=== PATIENT | female | born 1940 | race Caucasian/White ===

== ENCOUNTER 2018-10-08 11:07 | Inpatient (IN) ==
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
[2018-10-08 11:52] LABS: Hematocrit 33.2 % (37.0-47.0); Hemoglobin 11.2 gm/dL (12.5-16.0); Mean Cell Volume 84.7 fl (78-100); Mean Corpuscular Hemoglobin 28.6 pg (27-31); Mean Corpuscular Hgb Conc 33.7 g/dl (32-36); Mean Platelet Volume 8.8 fl (8-12.5); Neutrophil # 11.8 K/mm3 (1.3-6.0); Neutrophil % 88.6 % (42-75.0); Platelet Count 332 K/mm3 (150-450); Red Blood Count 3.92 M/mm3 (4.2-5.4); Red Cell Distribution Width 13.3 % (11.5-14.0); White Blood Count 13.3 K/mm3 (4.0-10.5)
[2018-10-08 11:59] LABS: INR 1.01 INR (0.92-1.08); Partial Thrombolplastin Time 22.6 Seconds (24-32)
[2018-10-08 12:08] LABS: Albumin * 3.1 gm/dl (3.4-5.0); Bilirubin, Total 0.2 mg/dL (0.0-1.1); Ca. Corrected For Albumin 10.3 mg/dL (8.4-10.2); Calcium * 9.9 mg/dL (7.9-10.9); Carbon Dioxide 27.2 mmol/L (24-32.6); Potassium 3.2 mmol/L (3.4-4.6); Total Protein 6.9 gm/dL (6.2-8.2)
[2018-10-08] MEDS ORDERED: POTASSIUM CHLORIDE 20 MEQ TABLET.SA PO ONE (12:31)
[2018-10-08] MEDS ORDERED: MORPHINE SULFATE 10 MG/ML SYRG IV ONE (12:56)
[2018-10-08] MEDS ORDERED: PANTOPRAZOLE SODIUM 40 MG/100 ML PIGGYBACK IV ONE ×2 (13:17→13:18)
--- NOTE | 2018-10-08 16:13 | CONS ---
HPI - General Date of Service: 10/08/18 Narrative: Mrs. Armando is a 78-year-old female who lives at home who fell when she was getting off the toilet and injured her left ankle. She was seen in emergency department and found to have a left bimalleolar ankle fracture. She is also noted to have started stools and was concerned for a GI bleed per reports from the emergency department physician. She was discussed myself I said that this could be treated outpatient but as she was admitted for other issues she is being seen at this time. She is resting in bed and states that she has minimal pain at this time. Source: patient - History of Present Illness Timing/Duration: 4-6 hours Severity: moderate Modifying Factors - (Worsens): Reports: movement Modifying Factors - (Improves): Reports: immobilization Associated Symptoms: denies symptoms Allergies/Adverse Reactions: Allergies Sulfa (Sulfonamide Antibiotics) Allergy (Mild, Verified 02/18/18 09:15) Hives Home Medications: Home Medications Medication Instructions Recorded Last Taken hydrochlorothiazide 25 mg tablet 25 mg PO DAILY 12/10/17 Unknown hydroxyzine pamoate 25 mg capsule 25 mg PO Q8H PRN 12/10/17 Unknown paroxetine 10 mg tablet 10 mg PO HS 12/10/17 Unknown Ibuprofen 800 mg PO TID PRN 10/08/18 Unknown Review of Systems - Review of Systems Narrative: negative except above Physical Examination - Exam Narrative: Left ankle in splint: Palpable dorsalis pedis pulse, brisk cap refill, able to flex and extend her toes, no bleeding, generalized ankle swelling Vital Signs: Vital Signs - Last Taken Temp 36.9 C 10/08/18 14:58 Pulse 93 10/08/18 14:58 Resp 20 10/08/18 14:58 BP 133/56 10/08/18 14:58 Pulse Ox 94 10/08/18 14:58 O2 Oxygen Delivery Method Room Air Constitutional: Present: Alert, Oriented x3 - Results and Findings: Narrative: Three-view left ankle in Aircast splint: Bimalleolar ankle fracture with transverse Peters B fibula with lateral cortical butterfly fragment, relatively well aligned ankle and fragments, no appreciable other acute osseous pathology Lab/Microbiology results last 24 hrs: Abnormal/Pending Laboratory Last 24 HRS 10/08/18 10/08/18 10/08/18 12:40 11:40 11:40 WBC RBC Hgb Hct Immature Gran % (Auto) Immature Gran # (Auto) Neutrophils % Lymphocytes % Neutrophils # Lymphocytes # PTT ([place]) 22.6 L Potassium 3.2 L Chloride 95 L BUN 58 H BUN/Creatinine Ratio 69.0 H Random Glucose 168 H Calcium Adj for Albumin 10.3 H ALT 17 L Albumin 3.1 L Stool Occult Blood Positive H 10/08/18 11:40 WBC 13.3 H RBC 3.92 L Hgb 11.2 L Hct 33.2 L Immature Gran % (Auto) 0.90 H Immature Gran # (Auto) 0.12 H Neutrophils % 88.6 H Lymphocytes % 6.0 L Neutrophils # 11.8 H Lymphocytes # 0.80 L PTT ([place]) Potassium Chloride BUN BUN/Creatinine Ratio Random Glucose Calcium Adj for Albumin ALT Albumin Stool Occult Blood - Assessments/Findings (1) Bimalleolar fracture of left ankle Diagnosis(s): She will be nonweightbearing to this ankle. Physical therapy will be ordered to assist with mobility. From orthopedic standpoint she does not need to be in the hospital. Ice, elevation, and immobilization to allow for swelling to decrease. This will likely need surgical fixation. She will need to follow up in clinic after discharge to evaluate her swelling and to arrange her surgical intervention as an outpatient. The plan to see her back 2-3 days after discharge. Problem: Acute Qualifiers: Encounter type: initial encounter Fracture type: closed Qualified Code(s): S82.842A - Displaced bimalleolar fracture of left lower leg, initial encounter for closed fracture
[2018-10-08] MEDS ORDERED: hydrOXYzine PAMOATE 25 MG CAPSULE PO PRN (19:10)
[2018-10-08] MEDS ORDERED: POTASSIUM CHLORIDE 40 MEQ/15 ML LIQUID PO ONE (19:12)
[2018-10-08] MEDS: traMADol HCL 50 MG TABLET PO PRN (19:31)
[2018-10-08] MEDS: ACETAMINOPHEN 500 MG TABLET PO PRN (19:31)
--- NOTE | 2018-10-08 19:40 | HP ---
Chief Complaint - Chief Complaint Date of Service: 10/08/18 Time of Service: 19:14 Chief Complaint: Ankle fracture, upper GI bleed History of Present Illness: 78-year-old female presented to the ER after ground-level fall this morning. She was found to have a bimalleolar left ankle fracture. Ortho was consulted who agreed to follow-up with patient in the outpatient setting. She was made nonweightbearing PT was ordered for her. Patient denies dizziness or balance issues with fall, states she is tripped. While in the ER she started talking about black stools have been ongoing for the last 3 days. She denies abdominal pain, nausea/vomiting, history of GERD, or history of GI bleed. Hemoglobin was 11.2, her baseline is unknown at this time. She denies having any recurrent black tarry stools. She is given a GI cocktail and admitted to the floor for GI bleed work-up. She has never had a colonoscopy or EGD. Currently her only concern is her ankle pain. Otherwise she states she feels fine, she is a poor historian though and has a slightly blunted affect. Medical History (Updated 10/08/18 @ 16:13 by Dain Hutchison MD) Fracture of left fibula, shaft Onset Date: ~2017 Osteoarthritis of both knees Onset Date: Unknown Depression Onset Date: Unknown Hypertension Onset Date: Unknown Lumbar radiculopathy Onset Date: Unknown Urticaria Onset Date: Unknown Surgical History: Surgical History (Updated 10/08/18 @ 16:13 by Dain Hutchison MD) History of lumbar surgery Onset Date: 2014 L4-L5 Family History: Family History (Updated 12/10/17 @ 10:07 by Yael Mendoza RN) Mother Hypertension Father Cancer multiple myeloma Social History: Patient Lives/Resources Home Utilized Preferred Language Urdu Do you have any uatsdin or No cultural preference? Smoking Status Never smoker Have you smoked in the past 12 No months (Last Updated 02/18/18 @ 10:20 by Rashawn Napier MD) No Social History Section defined Review Of Systems (GEN) - Review of Systems Generalized/Overall Review: Absent: Weakness, Chills, Fever, Malaise EENTM: Present: No Symptoms Reported Respiratory: Present: No Symptoms Reported Cardiac: Present: No Symptoms Reported Abdominal: Present: Melena. Absent: Nausea, Vomiting, Hematemesis, Abdominal Pain, Bright blood from rectum Genitourinary: Present: No Symptoms Reported Musculoskeletal: Present: Joint Pain - Left ankle pain Neurological: Present: No Symptoms Reported Skin: Present: No Symptoms Reported Endocrine: Present: No Symptoms Reported Immunizations: IMMUNIZATION HX History of Influenza Vaccine More Information Required Hx Pneumococcal Vaccination More Information Required Allergies/Adverse Reactions: Allergies Allergy/AdvReac Type Severity Reaction Status Date / Time Sulfa (Sulfonamide Allergy Mild Hives Verified 02/18/18 09:15 Antibiotics) Home Medications: HOME MEDICATIONS hydrochlorothiazide 25 mg tablet 25 mg PO DAILY 12/10/17 [Last Taken Unknown] hydroxyzine pamoate 25 mg capsule 25 mg PO Q8H PRN 12/10/17 [Last Taken Unknown] paroxetine 10 mg tablet 10 mg PO HS 12/10/17 [Last Taken Unknown] Ibuprofen 800 mg PO TID PRN 10/08/18 [Last Taken Unknown] Exam - Exam Vital Signs: Vital Signs - Last Taken Temp 36.6 C 10/08/18 18:29 Pulse 97 10/08/18 18:29 Resp 18 10/08/18 18:29 BP 130/50 10/08/18 18:29 Pulse Ox 95 10/08/18 18:29 Constitutional: Present: Alert, Oriented x3, Elderly. Absent: Cooperative ENT Exam: Present: hearing grossly normal. Absent: muffled/hoarse voice Eye Exam: bilateral eye: normal inspection Neck: Present: non-tender, supple Respiratory: Present: lungs clear, normal breath sounds. Absent: no respiratory distress Cardiovascular/Chest: Present: normal peripheral pulses, regular rate, rhythm. Absent: systolic murmur Abdomen: Present: Normal bowel sounds, soft, nontender, nondistended Extremity: Present: other - Left ankle in a brace, undisturbed Appearance: Present: appropriate appearance, denies illness Eye contact: Present: good eye contact, normal speech. Absent: cooperative Thoughts: Present: normal thought pattern. Absent: normal mood /affect - Guard ed, slightly blunted affect Diagnostic Studies: Abnormal Lab Results 10/08/18 10/08/18 10/08/18 Range/Units 11:40 11:40 11:40 WBC 13.3 H (4.0-10.5) K/mm3 RBC 3.92 L (4.2-5.4) M/mm3 Hgb 11.2 L (12.5-16.0) gm/dL Hct 33.2 L (37.0-47.0) % Immature Gran % (Auto) 0.90 H (0.001-0.429) % Immature Gran # (Auto) 0.12 H (0.000-0.0310) K/mm3 Neutrophils % 88.6 H (42-75.0) % Lymphocytes % 6.0 L (20-51) % Neutrophils # 11.8 H (1.3-6.0) K/mm3 Lymphocytes # 0.80 L (1.5-3.5) k/mm3 PTT ([place]) 22.6 L (24-32) Seconds Potassium 3.2 L (3.4-4.6) mmol/L Chloride 95 L (97-106) mmol/L BUN 58 H (3-23) mg/dL BUN/Creatinine Ratio 69.0 H (9.0-21.6) Random Glucose 168 H (70-110) mg/dL Calcium Adj for Albumin 10.3 H (8.4-10.2) mg/dL ALT 17 L (19-67) U/L Albumin 3.1 L (3.4-5.0) gm/dl Stool Occult Blood 10/08/18 Range/Units 12:40 WBC (4.0-10.5) K/mm3 RBC (4.2-5.4) M/mm3 Hgb (12.5-16.0) gm/dL Hct (37.0-47.0) % Immature Gran % (Auto) (0.001-0.429) % Immature Gran # (Auto) (0.000-0.0310) K/mm3 Neutrophils % (42-75.0) % Lymphocytes % (20-51) % Neutrophils # (1.3-6.0) K/mm3 Lymphocytes # (1.5-3.5) k/mm3 PTT ([place]) (24-32) Seconds Potassium (3.4-4.6) mmol/L Chloride (97-106) mmol/L BUN (3-23) mg/dL BUN/Creatinine Ratio (9.0-21.6) Random Glucose (70-110) mg/dL Calcium Adj for Albumin (8.4-10.2) mg/dL ALT (19-67) U/L Albumin (3.4-5.0) gm/dl Stool Occult Blood Positive H Laboratory Results WBC 13.3 K/mm3 (4.0-10.5) H 10/08/18 11:40 RBC 3.92 M/mm3 (4.2-5.4) L 10/08/18 11:40 Hgb 11.2 gm/dL (12.5-16.0) L 10/08/18 11:40 Hct 33.2 % (37.0-47.0) L 10/08/18 11:40 MCV 84.7 fl (78-100) 10/08/18 11:40 MCH 28.6 pg (27-31) 10/08/18 11:40 MCHC 33.7 g/dl (32-36) 10/08/18 11:40 RDW 13.3 % (11.5-14.0) 10/08/18 11:40 Plt Count 332 K/mm3 (150-450) 10/08/18 11:40 MPV 8.8 fl (8-12.5) 10/08/18 11:40 Immature Gran % (Auto) 0.90 % (0.001-0.429) H 10/08/18 11:40 Immature Gran # (Auto) 0.12 K/mm3 (0.000-0.0310) H 10/08/18 11:40 88.6 % (42-75.0) H 10/08/18 11:40 6.0 % (20-51) L 10/08/18 11:40 4.4 % (0.0-9) 10/08/18 11:40 0.0 % (0.0-3.0) 10/08/18 11:40 0.1 % (0.0-1.0) 10/08/18 11:40 Nucleated RBC % 0.0 k/mm3 (0-1) 10/08/18 11:40 11.8 K/mm3 (1.3-6.0) H 10/08/18 11:40 0.80 k/mm3 (1.5-3.5) L 10/08/18 11:40 0.6 k/mm3 (0.0-1.0) 10/08/18 11:40 0.0 k/mm3 (0.0-0.7) 10/08/18 11:40 Absolute Basophils 0.0 k/mm3 (0.0-0.1) 10/08/18 11:40 PT 10.0 Seconds (9.1-10.7) 10/08/18 11:40 INR (Anticoag Therapy) 1.01 INR (0.92-1.08) 10/08/18 11:40 PTT ([place]) 22.6 Seconds (24-32) L 10/08/18 11:40 Sodium 132 mmol/L (132-142) 10/08/18 11:40 133 mmol/L (130-142) 10/08/18 11:40 Potassium 3.2 mmol/L (3.4-4.6) L 10/08/18 11:40 Chloride 95 mmol/L (97-106) L 10/08/18 11:40 Carbon Dioxide 27.2 mmol/L (24-32.6) 10/08/18 11:40 13.0 mmol/L (6.8-13.8) 10/08/18 11:40 BUN 58 mg/dL (3-23) H 10/08/18 11:40 0.84 mg/dL (0.4-1.4) 10/08/18 11:40 Est GFR (Non-Af Amer) 70 mL/min (60-130) 10/08/18 11:40 69.0 (9.0-21.6) H 10/08/18 11:40 168 mg/dL (70-110) H 10/08/18 11:40 Calcium 9.9 mg/dL (7.9-10.9) 10/08/18 11:40 Calcium Adj for Albumin 10.3 mg/dL (8.4-10.2) H 10/08/18 11:40 0.2 mg/dL (0.0-1.1) 10/08/18 11:40 AST 14 U/L (0-48) 10/08/18 11:40 ALT 17 U/L (19-67) L 10/08/18 11:40 76 U/L (50-170) 10/08/18 11:40 6.9 gm/dL (6.2-8.2) 10/08/18 11:40 3.1 gm/dl (3.4-5.0) L 10/08/18 11:40 Positive H 10/08/18 12:40 Blood Type O Positive 10/08/18 11:40 Antibody Screen Negative 10/08/18 11:40 Assessment/Plan - Narrative Narrative: 78-year-old female with left bimalleolar fracture. Orthopedics consulted and plan to follow patient in outpatient setting. Patient is currently nonweightbearing. PT ordered to help with mobilization and transfer weight. Patient will follow-up with Ortho in outpatient setting once discharged. Will provide some tramadol and Tylenol as needed for pain Melena and anemiano recent stools since being admitted to the hospital. Will repeat hemoglobin in the morning. If hemoglobin remains stable then this can also be worked up in outpatient setting, if hemoglobin continues to drop, will consult general surgery for EGD. Patient started on Protonix. Currently patient is asymptomatic, no abdominal pain. Next Hypertension well-controlled, continue current treatment plan. Hypokalemiawe will order replacement therapy for this. We will start patient on regular diet as patient will likely need to go back for EGD inpatient. No DVT prophylaxis as patient currently has GI bleed. Nurse will call with any questions or concerns. - Assessment/Plan (1) Upper GI bleed Problem: Suspected (2) Bimalleolar fracture of left ankle Problem: Acute Qualifiers: Encounter type: initial encounter Fracture type: closed Qualified Code(s): S82.842A - Displaced bimalleolar fracture of left lower leg, initial encounter for closed fracture (3) Melena Problem: Acute (4) Hypertension Problem: Chronic (5) Hypokalemia Problem: Acute (6) Anemia Problem: Acute
[2018-10-08 19:57] LABS: Urine Bilirubin Negative (NEGATIVE); Urine Blood 250 /ul (NEGATIVE); Urine Ketone Negative (NEGATIVE); Urine Nitrite Negative (NEGATIVE); Urine Protein Negative (NEGATIVE); Urine Specific Gravity 1.015 SP.GR. (1.005-1.010); Urine Urobilinogen Normal (NORMAL)
[2018-10-08 20:00] LABS: Urine Appearance Slightly Cloudy (CLEAR); Urine Bacteria 3+; Urine Color Yellow; Urine Mucus Moderate - 2+; Urine WBC TRACE /hpf (0-5)
[2018-10-08] MEDS ORDERED: PARoxetine HCL 20 MG TABLET PO ONE (20:48)
[2018-10-08] MEDS: PARoxetine HCL 10 MG TABLET PO SCH (20:57)
[2018-10-08] MEDS: PANTOPRAZOLE SODIUM 40 MG TABLET.EC PO SCH (20:57)
[2018-10-09] MEDS: traMADol HCL 50 MG TABLET PO PRN ×2 (04:23→15:18)
[2018-10-09] MEDS: ACETAMINOPHEN 500 MG TABLET PO PRN ×2 (04:23→20:08)
[2018-10-09 05:50] LABS: Hematocrit 29.8 % (37.0-47.0); Hemoglobin 9.9 gm/dL (12.5-16.0)
[2018-10-09] MEDS: PANTOPRAZOLE SODIUM 40 MG TABLET.EC PO SCH ×2 (06:51→20:08)
[2018-10-09] MEDS ORDERED: HYDROCHLOROTHIAZIDE 25 MG TABLET PO SCH (09:00)
[2018-10-09] MEDS ORDERED: NORMAL SALINE 1,000 ML IV PRN (09:32)
--- NOTE | 2018-10-09 11:48 | PN ---
Subjective - Date and Time Seen Date: 10/09/18 Time: 11:48 Subjective Narrative: Patient resting comfortably in her bed, vital signs been stable with no acute events overnight. Pain well controlled. Hemoglobin dropped again, patient endorses some lightheaded and dizziness but otherwise denies abdominal pain, nausea/vomiting, hematemesis. Patient did have one black stool overnight. Objective - Review of Systems Generalized/Overall Review: Denies: Weakness, Chills, Fever EENTM: Reports: No Symptoms Reported Respiratory: Reports: No Symptoms Reported Cardiac: Reports: No Symptoms Reported Abdominal: Reports: Melena. Denies: Nausea, Vomiting, Hematemesis, Abdominal Pain Genitourinary Symptoms: Reports: No Symptoms Reported Musculoskeletal Complaints: Reports: Joint Pain Neurological: Reports: No Symptoms Reported Skin: Reports: No Symptoms Reported Endocrine: Reports: No Symptoms Reported - Vitals Vitals: Last Vital Signs Temp 36.8 C 10/09/18 11:25 Pulse 79 10/09/18 11:25 Resp 16 10/09/18 11:25 BP 115/54 10/09/18 11:25 Pulse Ox 97 10/09/18 11:25 - Abnormal Lab Findings Abnormal Lab Findings: Abnormal Lab Results 10/08/18 10/08/18 10/08/18 Range/Units 11:40 11:40 11:40 WBC 13.3 H (4.0-10.5) K/mm3 RBC 3.92 L (4.2-5.4) M/mm3 Hgb 11.2 L (12.5-16.0) gm/dL Hct 33.2 L (37.0-47.0) % Immature Gran % (Auto) 0.90 H (0.001-0.429) % Immature Gran # (Auto) 0.12 H (0.000-0.0310) K/mm3 Neutrophils % 88.6 H (42-75.0) % Lymphocytes % 6.0 L (20-51) % Neutrophils # 11.8 H (1.3-6.0) K/mm3 Lymphocytes # 0.80 L (1.5-3.5) k/mm3 PTT (Jael) 22.6 L (24-32) Seconds Potassium 3.2 L (3.4-4.6) mmol/L Chloride 95 L (97-106) mmol/L BUN 58 H (3-23) mg/dL BUN/Creatinine Ratio 69.0 H (9.0-21.6) Random Glucose 168 H (70-110) mg/dL Calcium Adj for Albumin 10.3 H (8.4-10.2) mg/dL ALT 17 L (19-67) U/L Albumin 3.1 L (3.4-5.0) gm/dl Urine Blood (NEGATIVE) /ul Ur Leukocyte Esterase (NEGATIVE) /ul Urine RBC (0-5) /hpf Urine WBC (0-5) /hpf Ur Epithelial Cells (0-5) /hpf Urine Bacteria (NONE) Urine Mucus (NONE) Stool Occult Blood 10/08/18 10/08/18 10/09/18 Range/Units 12:40 19:51 05:05 WBC (4.0-10.5) K/mm3 RBC (4.2-5.4) M/mm3 Hgb 9.9 L (12.5-16.0) gm/dL Hct 29.8 L (37.0-47.0) % Immature Gran % (Auto) (0.001-0.429) % Immature Gran # (Auto) (0.000-0.0310) K/mm3 Neutrophils % (42-75.0) % Lymphocytes % (20-51) % Neutrophils # (1.3-6.0) K/mm3 Lymphocytes # (1.5-3.5) k/mm3 PTT (Jael) (24-32) Seconds Potassium (3.4-4.6) mmol/L Chloride (97-106) mmol/L BUN (3-23) mg/dL BUN/Creatinine Ratio (9.0-21.6) Random Glucose (70-110) mg/dL Calcium Adj for Albumin (8.4-10.2) mg/dL ALT (19-67) U/L Albumin (3.4-5.0) gm/dl Urine Blood 250 H (NEGATIVE) /ul Ur Leukocyte Esterase 75 H (NEGATIVE) /ul Urine RBC 5-10 H (0-5) /hpf Urine WBC Trace H (0-5) /hpf Ur Epithelial Cells 5-10 H (0-5) /hpf Urine Bacteria 3+ H (NONE) Urine Mucus Moderate - 2+ H (NONE) Stool Occult Blood Positive H - Exam Constitutional: Present: Alert, Oriented x3 ENT Exam: Present: hearing grossly normal. Absent: nasal congestion, nasal drainage Neck: Present: non-tender, supple Respiratory: Present: lungs clear, normal breath sounds, no respiratory distress Cardiovascular/Chest: Present: normal peripheral pulses, regular rate, rhythm Abdomen: Present: Normal bowel sounds, soft, nontender, nondistended /Rectal: Present: Exam deferred Extremity: Present: normal capillary refill - Left lower extremity, leg pain Skin Exam: Present: normal color, warm/dry Appearance: Present: appropriate appearance, appropriate insight Eye contact: Present: cooperative, good eye contact Thoughts: Present: normal thought pattern, normal mood /affect Assessment/Plan Plan Narrative: #1 acute blood loss anemia likely secondary to upper GI bleedhemoglobin dropped from 11.2 down to 9.9. Patient is symptomatic with movement including dizziness blood pressures dropped down into the 80s systolically x1 otherwise been normal. General surgery consulted today who plan to take her back for EGD tomorrow. Patient will n.p.o. at midnight. Repeat hemogram the morning Left lower extremity bimalleolar fracturepatient to follow with Ortho outpatient once medically stable. Tramadol as needed for pain. Hypokalemiapotassium replaced today, repeat BMP in the morning Hypertensionwell-controlled aside from the 1 hypotensive episode this morning but otherwise have ranged from the 110s systolically over 40s and 50s diastolically. Nurse will call with any questions or concerns - Problems/Diagnosis (1) Upper GI bleed Problem: Suspected (2) Bimalleolar fracture of left ankle Problem: Acute Qualifiers: Encounter type: initial encounter Fracture type: closed Qualified Code(s): S82.842A - Displaced bimalleolar fracture of left lower leg, initial encounter for closed fracture (3) Melena Problem: Acute (4) Hypertension Problem: Chronic (5) Hypokalemia Problem: Acute (6) Anemia Problem: Acute
--- NOTE | 2018-10-09 12:47 | CONS ---
[facility] - General Date of Service: 10/09/18 Narrative: Upper GI bleed Source: patient Exam Limitations: no limitations - History of Present Illness Initial Comments: Alondra is a pleasant 78-year-old female who is admitted after a ground-level fall with a left ankle fracture. They're planning to fix the ankle in an outpatient fashion. She has been having dark stools for the last 3 days. She denies any abdominal pain, nausea vomiting, history of GERD, or history of GI bleed. Her hemoglobin has dropped. She has not had any bloody stools or dark stools today. She denies ever having a colonoscopy or EGD. She does take ibuprofen at home as needed. Otherwise she is not on any blood thinners. Timing/Duration: 1 week Severity: mild Associated Symptoms: other - Dark stools Allergies/Adverse Reactions: Allergies Sulfa (Sulfonamide Antibiotics) Allergy (Mild, Verified 02/18/18 09:15) Hives Home Medications: Home Medications Medication Instructions Recorded Last Taken hydrochlorothiazide 25 mg tablet 25 mg PO DAILY 12/10/17 Unknown hydroxyzine pamoate 25 mg capsule 25 mg PO Q8H PRN 12/10/17 Unknown paroxetine 10 mg tablet 10 mg PO HS 12/10/17 Unknown Ibuprofen 800 mg PO TID PRN 10/08/18 Unknown History of lumbar surgery Medications - Medications Current Medications: Current Medications Acetaminophen (Tylenol) 1,000 mg PO Q8H PRN PRN Reason: Mild pain (pain scale 1-3) Stop: 11/07/18 19:05 Last Admin: 10/09/18 04:23 Dose: 1,000 mg Documented by: Hydroxyzine Pamoate (Vistaril) 25 mg PO Q8H PRN PRN Reason: Itching Stop: 11/07/18 19:11 Last Admin: 10/08/18 19:36 Dose: 25 mg Documented by: Sodium Chloride (Sodium Chloride 0.9%) 1,000 mls @ 999 mls/hr IV .Q1H1M PRN PRN Reason: HYDRATION Stop: 11/08/18 09:33 Last Admin: 10/09/18 09:34 Dose: 999 mls/hr Documented by: Pantoprazole Sodium (Protonix) 40 mg PO BID@0700,2100 REGIGE Stop: 11/07/18 21:01 Last Admin: 10/09/18 06:51 Dose: 40 mg Documented by: Paroxetine HCl (Paxil) 10 mg PO HS REGGIE Stop: 11/07/18 21:01 Last Admin: 10/08/18 20:57 Dose: 10 mg Documented by: Tramadol HCl (Ultram) 50 mg PO Q6H PRN PRN Reason: Pain Stop: 11/07/18 19:05 Last Admin: 10/09/18 04:23 Dose: 50 mg Documented by: Review of Systems - Review of Systems Generalized/Overall Review: Present: No Symptoms Reported EENTM: Present: No Symptoms Reported Respiratory: Present: No Symptoms Reported Cardiac: Present: No Symptoms Reported Abdominal: Present: Melena Genitourinary: Present: No Symptoms Reported Musculoskeletal: Present: Other - Left ankle pain Neurological: Present: No Symptoms Reported Skin: Present: No Symptoms Reported Endocrine: Present: No Symptoms Reported Physical Examination - Exam Vital Signs: Vital Signs - Last Taken Temp 36.8 C 10/09/18 11:25 Pulse 79 10/09/18 11:25 Resp 16 10/09/18 11:25 BP 115/54 10/09/18 11:25 Pulse Ox 97 10/09/18 11:25 O2 Oxygen Delivery Method Room Air Constitutional: Present: Alert, Oriented x3, Cooperative, Obese ENT Exam: Present: hearing grossly normal Neck: Present: full range of motion, supple Breasts: Present: Exam deferred Respiratory: Present: lungs clear, normal breath sounds Cardiovascular/Chest: Present: regular rate, rhythm Abdomen: Present: Normal bowel sounds, soft, nondistended, obese /Rectal: Present: Exam deferred Extremity: Present: normal range of motion - Left ankle wrapped Skin Exam: Present: normal color 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 Risks and benefits of the procedure were discussed with the patient including: bleeding, bloating, abdominal pain, and unlikely perforation. Patient voices understanding and would like to proceed with the procedure. We'll plan to do this tomorrow. She had a glass of tea today. Discussed with Dr. Napier and Dr. Torres. Lab/Microbiology results last 24 hrs: Abnormal/Pending Laboratory Last 24 HRS 10/09/18 10/08/18 10/08/18 05:05 19:51 12:40 Hgb 9.9 L Hct 29.8 L Urine Blood 250 H Ur Leukocyte Esterase 75 H Urine RBC 5-10 H Urine WBC Trace H Ur Epithelial Cells 5-10 H Urine Bacteria 3+ H Urine Mucus Moderate - 2+ H Stool Occult Blood Positive H Culture 10/08/18 19:40 Urine Culture - Preliminary Urine,Clean Catch Ruling Out Pathogen - Assessments/Findings (1) Upper GI bleed Problem: Suspected
[2018-10-09] MEDS: PARoxetine HCL 10 MG TABLET PO SCH (20:08)
[2018-10-10] MEDS: traMADol HCL 50 MG TABLET PO PRN ×2 (00:08→22:23)
[2018-10-10] MEDS: NORMAL SALINE 1,000 ML IV PRN ×2 (01:01→09:15)
[2018-10-10 05:34] LABS: Hematocrit 28.4 % (37.0-47.0); Hemoglobin 9.4 gm/dL (12.5-16.0); Mean Cell Volume 86.3 fl (78-100); Mean Corpuscular Hemoglobin 28.6 pg (27-31); Mean Corpuscular Hgb Conc 33.1 g/dl (32-36); Platelet Count 227 K/mm3 (150-450); Red Blood Count 3.29 M/mm3 (4.2-5.4); Red Cell Distribution Width 13.5 % (11.5-14.0); White Blood Count 8.2 K/mm3 (4.0-10.5)
[2018-10-10 05:40] LABS: Anion Gap 11.8 mmol/L (6.8-13.8); BUN/Creatinine Ratio 50.7 (9.0-21.6); Calcium * 9.2 mg/dL (7.9-10.9); Carbon Dioxide 24.2 mmol/L (24-32.6); Estimated Creat Clear 66.9
[2018-10-10] MEDS: PANTOPRAZOLE SODIUM 40 MG TABLET.EC PO SCH ×2 (07:22→21:26)
--- NOTE | 2018-10-10 10:03 | ANES ---
Anesthesia Pre Procedure Eval Vitals/Labs: Last Vital Signs Temp 36.6 C 10/10/18 06:00 Pulse 85 10/10/18 06:00 Resp 18 10/10/18 06:00 BP 124/55 10/10/18 06:00 Pulse Ox 95 10/10/18 06:00 HOME MEDICATIONS hydrochlorothiazide 25 mg tablet 25 mg PO DAILY 12/10/17 [Last Taken Unknown] hydroxyzine pamoate 25 mg capsule 25 mg PO Q8H PRN 12/10/17 [Last Taken Unknown] paroxetine 10 mg tablet 10 mg PO HS 12/10/17 [Last Taken Unknown] Ibuprofen 800 mg PO TID PRN 10/08/18 [Last Taken Unknown] Allergies/Adverse Reactions: Allergies Allergy/AdvReac Type Severity Reaction Status Date / Time Sulfa (Sulfonamide Allergy Mild Hives Verified 02/18/18 09:15 Antibiotics) - Planned Procedure Planned Procedure: GI BLEED,LEFT ANKLE FX Medication List Reviewed:: Yes Allergies Verified: Yes Medical History (Updated 10/09/18 @ 08:43 by Christiano Carrillo MD) Fracture of left fibula, shaft Onset Date: ~2017 Osteoarthritis of both knees Onset Date: Unknown Depression Onset Date: Unknown Hypertension Onset Date: Unknown Lumbar radiculopathy Onset Date: Unknown Urticaria Onset Date: Unknown Surgical History (Updated 10/08/18 @ 16:13 by Dain Hutchison MD) History of lumbar surgery Onset Date: 2014 L4-L5 Family History (Updated 12/10/17 @ 10:07 by Yael Mendoza RN) Mother Hypertension Father Cancer multiple myeloma - Family Anesthesia History Family History:: no untoward family reactions to anesthesia - Airway/Neck/Teeth Teeth Condition: intact Neck Exam: limited range of motion Mallampatti Score: 3 Thyromental (T-M) distance: > 6 cm Mandibulo Hyoid distance: > 3 cm - Respiratory Respiratory Physical: lungs clear Smoking Status: Never smoker Sleep Apnea currently treated: No Sleep Apnea by current assessment: No - Cardiovascular Cardiac History: hypertension Tolerate Activity: Fair Heart Sounds: S1 & S2, Regular - Anesthesia Assessment and Plan ASA Class: PS, III Anesthesia Type Plan: MAC Planned difficult intubation/equipment available: No
--- NOTE | 2018-10-10 12:05 | OR ---
Operative Report - Dictated Report Narrative: Date of Service:10/10/18 Procedure: EGD with biopsy Pre-procedure diagnosis: Anemia, melena Post-procedure diagnosis: Duodenal ulcer Surgeon: Dr. Melanie Bermudez Anesthesia: MAC Indication for procedure: Alondra is a pleasant 78-year-old female who is admitted for an ankle fracture. She was found to have melena and anemia. Description of procedure: After appropriate informed consent was obtained, patient was taken to the endoscopy suite placed in the left lateral decubitus position. Monitors were applied, appropriate sedation was achieved. A lubricated gastroscope was inserted and advanced into the second portion of the duodenum. The scope was slowly withdrawn, the duodenum had a large ulcer in the first portion of the duodenum, this took up half the circumference of the duodenum. The ulcer was nonbleeding with no visible vessel. The scope was withdrawn to the antrum. An antral biopsy was taken. A biopsy for Deanne was also taken. The scope was retroflexed, the stomach appeared normal. The body of the stomach also appeared normal. Scope was slowly withdrawn to the GE junction, the Z line appeared normal. The excess air was suctioned and the scope was slowly removed. Complications: none Specimens to pathology: antral biopsy, deanne Estimated blood loss: minimal Disposition: Avoid NSAIDs, Protonix and Carafate
--- NOTE | 2018-10-10 12:19 | PN ---
Subjective - Date and Time Seen Date: 10/10/18 Time: 12:07 Subjective Narrative: Patient did well overnight, her vital signs been stable. No more black tarry bowel movements in the last 24 hours. Only concern is some ankle pain and a slight headache. She went back for EGD today which showed a nonbleeding ulcer. Hemoglobin is stabilized at 9.4 (down from 9.9 but this could be hemodilution due to IV fluids given). No more dizziness since blood pressures stabilized. Objective - Review of Systems Generalized/Overall Review: Denies: Weakness, Chills, Fever EENTM: Reports: No Symptoms Reported Respiratory: Reports: No Symptoms Reported Cardiac: Reports: No Symptoms Reported Abdominal: Reports: No Symptoms Reported Genitourinary Symptoms: Denies: Burning, Itching, Urgency Musculoskeletal Complaints: Reports: Joint Pain - Left ankle pain Neurological: Reports: Headache - Mild Skin: Reports: No Symptoms Reported - Vitals Vitals: Last Vital Signs Temp 36.9 C 10/10/18 10:00 Pulse 89 10/10/18 10:00 Resp 18 10/10/18 10:00 BP 135/53 10/10/18 10:00 Pulse Ox 95 10/10/18 10:00 - Abnormal Lab Findings Abnormal Lab Findings: Abnormal Lab Results 10/10/18 10/10/18 Range/Units 05:10 07:00 RBC 3.29 L (4.2-5.4) M/mm3 Hgb 9.4 L (12.5-16.0) gm/dL Hct 28.4 L (37.0-47.0) % Sodium 131 L (132-142) mmol/L BUN 34 H (3-23) mg/dL BUN/Creatinine Ratio 50.7 H (9.0-21.6) - Exam Constitutional: Present: Alert, Oriented x3, Cooperative Neck: Present: non-tender, supple Respiratory: Present: lungs clear, normal breath sounds Cardiovascular/Chest: Present: normal peripheral pulses, regular rate, rhythm Abdomen: Present: Normal bowel sounds, soft, nontender, nondistended Extremity: Present: normal capillary refill, leg pain Skin Exam: Present: normal color, warm/dry Appearance: Present: appropriate appearance, appropriate insight Eye contact: Present: cooperative, good eye contact Thoughts: Present: normal thought pattern, normal mood /affect Assessment/Plan Plan Narrative: Patient did well overnight, pain well controlled. Patient's anemia stabilized at 9.4, slightly down from the day before but this could be due to hemodilution as she did receive IV fluids. No recurring melanotic stools. Patient denies abdominal pain, nausea/vomiting. EGD performed today by Dr. Bermudez showing large nonbleeding gastric ulcer and started her on Protonix with recommendation to avoid anti-inflammatory medications. Lungs her hemoglobin remained stable then can do further work-up outpatient if needed, colonoscopy is needed at some point but she could likely have her ankle repaired before that needs to happen as long as she stops having black stools which it is likely due to the nonbleeding ulcer that probably was bleeding prior to. Resume normal diet Left bimalleolar fracture is been managed outpatient with orthopedics. Patient has scheduled follow-up. Pain well controlled at this time with tramadol which we will send her to the short-term nursing facility tomorrow with. Continue physical therapy. Hypertension is well controlled without medication, I think hydrochlorothiazide is likely what caused some of her dizziness which probably related in the fall that fractured her ankle. Continue holding hydrochlorothiazide at this time as her blood pressures are within normal limits. Again holding any DVT prophylaxis due to GI bleed. SCDs are being withheld for comfort measures due to fracture of ankle. Nurse will call with any questions or concerns. - Problems/Diagnosis (1) Upper GI bleed Problem: Suspected (2) Bimalleolar fracture of left ankle Problem: Acute Qualifiers: Encounter type: initial encounter Fracture type: closed Qualified Code(s): S82.842A - Displaced bimalleolar fracture of left lower leg, initial encounter for closed fracture (3) Melena Problem: Acute (4) Hypertension Problem: Chronic (5) Hypokalemia Problem: Acute (6) Anemia Problem: Acute
--- NOTE | 2018-10-10 12:20 | ANES ---
Post Anesthesia Discharge - Transfer of Care Transfer of Care handoff given to nurse: Yes - Discharge to [facility] Discharge to [facility]-no complications/pt stable: Yes - Comfortable in Room
[2018-10-10] MEDS ORDERED: ENOXAPARIN SODIUM 40 MG/0.4 ML SYRG SC SCH (12:30)
[2018-10-10] MEDS: PARoxetine HCL 10 MG TABLET PO SCH (21:26)
--- NOTE | 2018-10-11 07:23 | ANES ---
Post Anesthesia Assessment - Vital Signs Vitals: Last Vital Signs Temp 36.4 C 10/11/18 06:45 Pulse 92 10/11/18 06:45 Resp 16 10/11/18 06:45 BP 140/73 10/11/18 06:45 Pulse Ox 95 10/11/18 06:45 Airway Patency: Normal - Mental Status Level Of Consciousness: Awake, Alert, Appropriate - Pain Level Pain Score: 0 - N/V Assessment Nausea/Vomiting Presence: None Dehydration:: No
[2018-10-11] MEDS: PANTOPRAZOLE SODIUM 40 MG TABLET.EC PO SCH (08:27)
[2018-10-11 10:34] VITALS: BP 139/53
--- NOTE | 2018-10-11 10:46 | DS ---
(1) Upper GI bleed Problem: Resolved (2) Bimalleolar fracture of left ankle Problem: Acute Qualifiers: Encounter type: initial encounter Fracture type: closed Qualified Code(s): S82.842A - Displaced bimalleolar fracture of left lower leg, initial encounter for closed fracture (3) Melena Problem: Acute (4) Hypertension Problem: Chronic (5) Hypokalemia Problem: Acute (6) Anemia Problem: Acute Description of Stay: 78-year-old female presented to the hospital for ground level fall resulting in a bimalleolar left ankle fracture. Patient was evaluated by orthopedics and is planning to see them outpatient for repair. Patient states that the fall was caused by dizziness, she was found to be anemic, patient endorsed black tarry stools for 3 days leading up to the fall. She had one black tarry stool while here in the hospital. general surgery was consulted who performed an EGD on her and found her to have a large nonbleeding gastric ulcer. Instructed to start Protonix and to avoid NSAID use. Her hemoglobin is stabilized at 9.4. She is no longer having dizzy spells and she is stable for discharge. She will likely need colonoscopy at some point if she continues to have bloody stools but this has since resolved and likely the source was the gastric ulcer seen on EGD. Of note she also was having low blood pressures and her hydrochlorthiazide was stopped, since then her blood pressures have also stabilized, this was likely resulting in some of her dizziness as well. She was discharged to a short-term nursing facility, she needs physical therapy. She can take tramadol as needed for the pain. Instructed to follow-up with orthopedics as directed. Patient she should follow-up with her PCP for colonoscopy if bloody stools resume. Procedures Performed: see notes below List Procedures: EGD hours showing gastric ulcer, nonbleeding. Results and Findings: Lab Pending Results 10/08/18 11:40: WBC 13.3 H, RBC 3.92 L, Hgb 11.2 L, Hct 33.2 L, MCV 84.7, MCH 28.6, MCHC 33.7, RDW 13.3, Plt Count 332, MPV 8.8, Immature Gran % (Auto) 0.90 H, Immature Gran # (Auto) 0.12 H, Neutrophils % 88.6 H, Lymphocytes % 6.0 L, Monocytes % 4.4, Eosinophils % 0.0, Basophils % 0.1, Nucleated RBC % 0.0, Neutrophils # 11.8 H, Lymphocytes # 0.80 L, Monocytes # 0.6, Eosinophils # 0.0, Absolute Basophils 0.0 10/08/18 11:40: PT 10.0, INR (Anticoag Therapy) 1.01, PTT (Divide) 22.6 L 10/08/18 11:40: Sodium 132, Plasma Sodium 133, Potassium 3.2 L, Chloride 95 L, Carbon Dioxide 27.2, Anion Gap 13.0, BUN 58 H, Creatinine 0.84, Est GFR (Non-Af Amer) 70, BUN/Creatinine Ratio 69.0 H, Random Glucose 168 H, Calcium 9.9, Calcium Adj for Albumin 10.3 H, Total Bilirubin 0.2, AST 14, ALT 17 L, Alkaline Phosphatase 76, Total Protein 6.9, Albumin 3.1 L 10/08/18 11:40: Blood Type O Positive, Antibody Screen Negative 10/08/18 12:40: Stool Occult Blood Positive H 10/08/18 19:51: Urine Color Yellow, Urine Appearance Slightly cloudy, Urine pH 6.0, Ur Specific [place] 1.015, Urine Protein Negative, Urine Glucose (UA) Negative, Urine Ketones Negative, Urine Blood 250 H, Urine Nitrate Negative, Urine Bilirubin Negative, Urine Urobilinogen Normal, Ur Leukocyte Esterase 75 H, Urine RBC 5-10 H, Urine WBC Trace H, Ur Epithelial Cells 5-10 H, Urine Bacteria 3+ H, Urine Mucus Moderate - 2+ H, Urine Culture Comments Culture to follow 10/09/18 05:05: Hgb 9.9 L, Hct 29.8 L 10/10/18 05:10: Sodium 131 L, Plasma Sodium 131, Potassium 4.0 D, Chloride 99, Carbon Dioxide 24.2, Anion Gap 11.8, BUN 34 H, Creatinine 0.67, Est GFR (Non-Af Amer) 91 D, BUN/Creatinine Ratio 50.7 H, Random Glucose 101 D, Calcium 9.2 10/10/18 07:00: WBC 8.2 D, RBC 3.29 L, Hgb 9.4 L, Hct 28.4 L, MCV 86.3, MCH 28.6, MCHC 33.1, RDW 13.5, Plt Count 227, MPV 9.0 10/10/18 12:20: Pathology Specimen Spec to path Discharge Location: [facility] Disposition: SNF Condition: Stable Level of Care: SNF Discharge Activity: Activity as tolerated, Non-Weight bearing - nonweightbearing on the left Discharge Diet: General/regular food Referrals: Sydney Mortensen FNP [Primary Care Provider] - Problem Oriented Discharge Instructions to Patient/Family: Ankle Fracture, [id number], Gastrointestinal Bleeding, [id number] Additional Patient Instructions (free text): F/U with ortho either Sunday or Sunday in the office. Will schedule surgery at that appointment. Prescriptions (Any new or edited meds): Pantoprazole Sodium [Protonix] 40 mg PO BID@0700,2100 #40 tablet. traMADol HCL [Ultram] 50 mg PO Q6H PRN #20 tab PRN Reason: Pain Complete Home Medications List: Complete Home Medication List: hydroxyzine pamoate 25 mg capsule 25 mg PO Q8H PRN 12/10/17 paroxetine 10 mg tablet 10 mg PO HS 12/10/17 Pantoprazole Sodium [Protonix] 40 mg PO BID@0700,2100 #40 tablet. 10/11/18 traMADol HCL [Ultram] 50 mg PO Q6H PRN #20 tab 10/11/18
== END 2018-10-11 11:05 | DRG 384 ==
LOC: ER 11:07 → MS 13:36
PROVIDERS: ADMIT Family Medicine; ATTEND Family Medicine
CPT/HCPCS: 36415; 70450; 73610; 80048; 80053; 81001; 82272; 85014; 85018; 85025; 85027; 85610; 85730; 86850; 87077; 87081; 87086; 87186; 88305; 88312; 88313; 96374; 97110; 97162; 97530; 99285